=== PATIENT | female | born 1965 | race Caucasian/White ===

== ENCOUNTER 2018-05-25 16:25 | Emergency (ER) | payer OTHER ==
[~2018-05-25 16:25] MED LIST: CHLORDIAZEPOXID25 M3 PO; DICYCLOMINE HCL10 M1 PO; KETOROLAC TROME10 M1 PO; LEVSIN0.125 M1 PO; TRAMADOL HCL50 M1 PO; ZOFRAN ODT4 M1 SL; ZOFRAN4 M2 PO
--- NOTE | 2018-05-25 16:34 | ED HEAD/FACIAL INJ COMPLAINT ---
History of Present Illness General Chief Complaint: General Adult Stated Complaint: "UM ON MONDAY I HAD A BOXLAND ON MY FACE" Source: patient Exam Limitations: no limitations Vital Signs & Intake/Output Vital Signs & Intake/Output Vital Signs Date Time Temp Pulse Resp B/P B/P Pulse O2 O2 Flow FiO2 Mean Ox Delivery Rate 05/25 1813 188/104 05/25 1632 98.0 84 18 172/123 98 Room Air Allergies Coded Allergies: bee venom protein (honey bee) (Severe, ANAPHYLAXIS 10/08/17) Reconcile Medications Dicyclomine HCl 10 MG CAPSULE 1 CAP PO TID GASTRITIS Hyoscyamine (Levsin) 0.125 MG TABLET 1 TAB PO Q4 PRN ABDOMINAL SPASMS Ketorolac Tromethamine 10 MG TABLET 1 TAB PO TID PRN PAIN RECEIVED IM IN ER Ondansetron (Zofran Odt) 4 MG TAB.RAPDIS 1 TAB SL TID NAUSEA Ondansetron HCl (Zofran) 4 MG TABLET 1 TAB PO Q6-8P PRN NAUSEA Tramadol HCl 50 MG TABLET 1 TAB PO BIDP PRN PAIN Triage Note: 53F HAD A HEAVY BOX FULL OF TOOLS FALL ON HER FACE ON MONDAY AND HAD SWELLING, WORSENING PAIN AND SAW URGENT CARE YESTERDAY WHO DID XRAYS AND DX WITH ORBITAL FRACTURE TO RIGHT SIDE. +NAUSEA, MINIMAL VISION CHANGES, SLIGHT PAIN WITH EOM. +PHOTOSENSITIVITY. DENIES NECK PAIN. HYPERTENSIVE IN TRIAGE Triage Nurses Notes Reviewed? yes Onset: Abrupt Severity: moderate, severe Method of Injury: direct blow Loss of Consciousness: no loss of consciousness HPI: 53-year-old female comes into the emergency room for further evaluation with CT scan after head injury that occurred a few days ago. Patient reports that it will box fell and hit her in the face. She has been having headache and increased pain and swelling to her right eye. She was told at the walk-in clinic that she has a fracture of her right eye. She was sent in for further evaluation. No pain with movement of the eye. She reports that the swelling in the right eye is constant visual disturbance. She denies any vomiting. Denies any other associated symptoms. Denies any neck pain. Denies any anticoagulants (Ramez Estrada) Past History Travel History Traveled to [place] past 21 day No Medical History Any Pertinent Medical History? see below for history Neurological: NONE EENT: NONE Cardiovascular: hypertension Respiratory: NONE Gastrointestinal: NONE Hepatic: NONE Renal: NONE Musculoskeletal: NONE Psychiatric: alcohol dependence, anxiety, depression Endocrine: NONE Surgical History Surgical History: cholecystectomy, gastric bypass Psychosocial History What is your primary language Latvian Tobacco Use: Never used ETOH Use: heavy use Illicit Drug Use: denies illicit drug use Family History Hx Contributory? No (Ramez Estrada) Review of Systems Review of Systems Constitutional: Reports: no symptoms. EENTM: Reports: no symptoms. Respiratory: Reports: no symptoms. Cardiovascular: Reports: no symptoms. GI: Reports: no symptoms. Genitourinary: Reports: no symptoms. Musculoskeletal: Reports: see HPI. Skin: Reports: no symptoms. Neurological/Psychological: Reports: see HPI. Hematologic/Endocrine: Reports: see HPI. Immunologic/Allergic: Reports: no symptoms. All Other Systems: Reviewed and Negative (Ramez Estrada) Physical Exam Physical Exam General Appearance: well developed/nourished, mild distress Head: atraumatic (RIGHT EYE), contusions Eyes: Bilateral: normal appearance, PERRL, EOMI. Ears, Nose, Throat: normal ENT inspection, hearing grossly normal Neck: normal inspection, supple, full range of motion, no midline tenderness Respiratory: no respiratory distress Back: normal inspection Extremities: normal inspection, normal range of motion, no edema Psychiatric: awake, alert, oriented x 3 Cranial Nerves: normal hearing, normal speech, PERRL Coordination/Gait: normal gait Motor/Sensory: no motor/sensory deficits Skin: intact, normal color, warm/dry Lymphatic: no anterior cervical cayetano (Ramez Estrada) Progress Differential Diagnosis: c-spine injury, facial fracture, globe injury, ICH, orbit fracture, skull fracture Plan of Care: Orders Procedure Date/time Status CT HEAD WO IV CONTRAST 05/[address] MAXILLOFACIAL W/O CON 05/25 1633 Active Diagnostic Imaging: Viewed by Me: CT Scan. Discussed w/RAD: CT Scan. Radiology Impression: PATIENT: MATIAS BELLE PRESENT AGE: 53 PATIENT ACCOUNT NO: [id number] : 63 LOCATION: [facility] ORDERING PHYSICIAN: Ramez CONROY SERVICE DATE: 05/25/18-163 EXAM TYPE : CAT - CT HEAD WO IV CONTRAST; CT MAXILLOFACIAL W/O CON CT HEAD WITHOUT IV CONTRAST CT MAXILLOFACIAL WITHOUT IV CONTRAST INDICATION: Right eye trauma. COMPARISON: None available. TECHNIQUE: Multidetector CT acquisitions of the head and maxillofacial region were obtained without IV contrast. Multiplanar reformats were acquired and utilized for image interpretation. FINDINGS: HEAD: There is no intracranial hemorrhage, hydrocephalus, extra-axial surface collection, midline shift, or other herniation pattern. Bhatia to white matter differentiation is diffusely maintained without evidence of an evolved acute territorial infarct. The basilar cisterns are preserved. No significant soft tissue abnormality. No acute osseous abnormality. The paranasal sinuses and the mastoid air cells are well-aerated. MAXILLOFACIAL: The mandible, maxilla, pterygoid plates, nasal bones, zygomatic arches, paranasal sinus greer, and bony orbits are intact. No acute osseous abnormality within the maxillofacial region. The paranasal sinuses and mastoid air cells remain well-aerated. No significant soft tissue findings. IMPRESSION: No acute intracranial findings. No acute maxillofacial fractures. The bony orbits are intact. DICTATED BY: Stanley Parham MD DATE/TIME DICTATED:05/25/181740 GAS FITTER HELPER:SAMUEL DATE/TIME TRANSCRIBED:05/25/181740 CONFIDENTIAL, DO NOT COPY WITHOUT APPROPRIATE AUTHORIZATION. <Electronically signed in Other Vendor System> SIGNED BY: Stanley Parham MD 05/25/18 0003 Comments: 05/25/18 The patient clinically looks well. The patient is in no apparent distress. Patient is nontoxic appearing. Extraocular movement is intact. No evidence of fracture or trauma. Follow-up with PCP. No evidence of trauma to the eye itself. (Ramez Estrada) Departure Departure Disposition: HOME OR SELF CARE Condition: Stable Clinical Impression Primary Impression: Facial contusion Secondary Impressions: Head injury Referrals: Beverly Manning DO (PCP/Family) Additional Instructions: Ibuprofen as needed for pain. Follow-up with primary care doctor. Return if any concerns worsening symptoms. Please go over all results of today's visit with your primary care doctor. Contact your primary care doctor to let them know you were here in the emergency room. There may be nonspecific findings which may not be related to your visit today here in the emergency room but may require further evaluation and chronic monitoring by your primary care doctor. If you had a laceration today the chance of foreign body always remains. You should follow-up with your primary care doctor for recheck in 3-5 days for a wound check. If you had an x-ray done there is a chance that a fracture could have been missed on initial read and you should follow-up with your primary care doctor for repeat x-rays if symptoms persist. If your blood pressure was elevated here in the emergency room please have rechecked by hyour primary care doctor within the next 48. If you were prescribed a narcotic here in the emergency room or any type of controlled substances you're not allowed to drive while taking this medication or operate any type of heavy machinery. Narcotics can make you feel lightheaded dizziness nausea and can cause constipation. You may need to brick picker a stool softener. Thank you for choosing [facility] emergency room. Please return to the emergency room immediately if you have any other concerns worsening of symptoms. Departure Forms: Customer Survey General Discharge Information (Ramez Estrada) PA/SEARCH ENGINE MARKETING SPECIALIST Co-Sign Statement Statement: ED Attending supervision documentation- [] I saw and evaluated the patient. I have also reviewed all the pertinent lab results and diagnostic results. I agree with the findings and the plan of care as documented in the PA's/SEARCH ENGINE MARKETING SPECIALIST's documentation. [X] I have reviewed the ED Record and agree with the PA's/SEARCH ENGINE MARKETING SPECIALIST's documentation. [] Additions or exceptions (if any) to the PAs/SEARCH ENGINE MARKETING SPECIALIST's note and plan are summarized below: [] (Stanley Slade DO
--- NOTE | 2018-05-25 17:53 | CT SCAN REPORT ---
CT HEAD WITHOUT IV CONTRAST CT MAXILLOFACIAL WITHOUT IV CONTRAST INDICATION: Right eye trauma. COMPARISON: None available. TECHNIQUE: Multidetector CT acquisitions of the head and maxillofacial region were obtained without IV contrast. Multiplanar reformats were acquired and utilized for image interpretation. FINDINGS: HEAD: There is no intracranial hemorrhage, hydrocephalus, extra-axial surface collection, midline shift, or other herniation pattern. Bhatia to white matter differentiation is diffusely maintained without evidence of an evolved acute territorial infarct. The basilar cisterns are preserved. No significant soft tissue abnormality. No acute osseous abnormality. The paranasal sinuses and the mastoid air cells are well-aerated. MAXILLOFACIAL: The mandible, maxilla, pterygoid plates, nasal bones, zygomatic arches, paranasal sinus greer, and bony orbits are intact. No acute osseous abnormality within the maxillofacial region. The paranasal sinuses and mastoid air cells remain well-aerated. No significant soft tissue findings. IMPRESSION: No acute intracranial findings. No acute maxillofacial fractures. The bony orbits are intact.
[2018-05-25 18:13] VITALS: BP 188/104
== END 2018-05-25 18:37 ==
LOC: ERH 16:25
DX: S00.83XA Contusion of other part of head, initial encounter (principal); S09.90XA Unspecified injury of head, initial encounter; W20.8XXA Other cause of strike by thrown, projected or falling object, initial encounter; Y92.9 Unspecified place or not applicable; Y93.9 Activity, unspecified; I10 Essential (primary) hypertension; F10.20 Alcohol dependence, uncomplicated